=== PATIENT | male | born 1960 | race Caucasian/White ===

== ENCOUNTER → 2017-08-01 | Outpatient (CLI) | payer OTHER | END | disposition home or self-care (01) | LOC: CFH 13:50 | PROVIDERS: ATTEND Physician Assistant | DX: E78.4 Other hyperlipidemia (principal); I10 Essential (primary) hypertension; F41.9 Anxiety disorder, unspecified; F32.89 Other specified depressive episodes; M25.519 Pain in unspecified shoulder; M54.5 Low back pain; R35.0 Frequency of micturition; H91.90 Unspecified hearing loss, unspecified ear; J30.9 Allergic rhinitis, unspecified; M25.512 Pain in left shoulder; E55.9 Vitamin D deficiency, unspecified; R73.01 Impaired fasting glucose; M79.673 Pain in unspecified foot; G89.29 Other chronic pain | CPT/HCPCS: 93880 ==

== ENCOUNTER → 2019-12-16 | Outpatient (CLI) | payer OTHER | END | disposition home or self-care (01) | LOC: CFH 09:19 | PROVIDERS: ATTEND Internal Medicine Cardiovascular Disease | DX: E78.2 Mixed hyperlipidemia (principal); I77.810 Thoracic aortic ectasia; Z82.49 Family history of ischemic heart disease and other diseases of the circulatory system | CPT/HCPCS: 75571 ==